=== PATIENT | male | born 1950 | race Caucasian/White ===

== ENCOUNTER 2020-01-31 11:22 | Inpatient (IN) ==
[2020-01-31] MEDS ORDERED: ACETAMINOPHEN 1,000 MG/100 ML VIAL IV STA (11:31)
[2020-01-31] MEDS: HYDROmorphone INJ 0.5 MG/0.5 ML SYR IV PRN ×2 (11:48→14:11)
[2020-01-31 11:50] LABS: Basophils # (auto) 0.02 K/uL (0-0.2); Basophils % (auto) 0.2 %; Eosinophils # (auto) 0.02 K/uL (0-0.5); Eosinophils % (auto) 0.2 %; Hematocrit (blood only) 43.6 % (42-52); Hemoglobin 15.5 g/dL (14.0-18.0); Immature Granulocytes # (auto) 0.02 K/uL (0.00-0.02); Immature Granulocytes % (auto) 0.2 %; Lymphocytes % (auto) 8.4 %; Mean Corpuscular Hemoglobin 32.3 pg (25-34); Mean Corpuscular Hgb Conc 35.6 g/dL (32-36); Mean Corpuscular Volume 90.8 fL (80-100); Mean Platelet Volume 10.2 fL (7.4-10.4); Monocytes # (auto) 0.67 K/uL (0.11-0.59); Monocytes % (auto) 5.6 %; Neutrophils # (auto) 10.19 K/uL (1.4-6.5); Neutrophils % (auto) 85.4 %; Platelet Count 232 K/uL (130-400); RDW Coefficient of Variation 11.9 % (11.5-14.5); RDW Standard Deviation 39.8 fL (36.4-46.3); White Blood Count 11.92 K/uL (4.8-10.8)
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
[2020-01-31 12:01] LABS: INR 1.1 (0.9-1.1); Partial Thromboplastin Ratio 0.9; Partial Thromboplastin Time 26.3 Seconds (21.0-31.0); Prothrombin Time 11.6 Seconds (9.0-12.0)
[2020-01-31 12:08] LABS: Creatinine Clr Calc Pharmacy 63.5 ml/min; Est GFR (African American) 99.3; Est GFR (Non-African American) 85.7; Potassium 3.9 mmol/L (3.5-5.1)
--- NOTE | 2020-01-31 12:24 | XRay Report ---
XR chest 1V not portable CLINICAL HISTORY: Pt left hip fracture COMPARISON STUDY: No previous studies for comparison. FINDINGS: Moderate emphysematous change. Several small blebs right lung base. No acute infiltrate. IMPRESSION: Emphysematous change. No acute process. ACT 112: Negative or not required by law. The above report was generated using voice recognition software. It may contain grammatical, syntax or spelling errors. Electronically signed by: Mello Sanford M.D. 01/31/2020 12:23 PM
--- NOTE | 2020-01-31 12:25 | XRay Report ---
XR pelvis 1-2V routine CLINICAL HISTORY: Pt c/o left hip pain COMPARISON: None. DISCUSSION: Intertrochanteric fracture left hip. Degenerative change of the hips bilaterally consider ed moderate. No evidence for acetabular protrusion. There is no evidence for soft tissue swelling. IMPRESSION: Intertrochanteric fracture left hip. Moderate superimposed degenerative change. ACT 112: Negative or not required by law. The above report was generated using voice recognition software. It may contain grammatical, syntax or spelling errors. Electronically signed by: Mello Sanford M.D. 01/31/2020 12:24 PM
--- NOTE | 2020-01-31 12:27 | XRay Report ---
XR femur LT 2V routine CLINICAL HISTORY: Pt c/o left hip pain COMPARISON: None. DISCUSSION: Intertrochanteric fracture left hip considered nondisplaced. Equivocal subcapital region of sclerosis. There is no evidence for soft tissue swelling. IMPRESSION: 1. Nondisplaced intertrochanteric fracture left hip. 2. Slightly atypical appearance subcapital region left hip with CT of the bony pelvis suggested as fo llow-up. ACT 112: Negative or not required by law. The above report was generated using voice recognition software. It may contain grammatical, syntax or spelling errors. Electronically signed by: Mello Sanford M.D. 01/31/2020 12:25 PM
--- NOTE | 2020-01-31 12:28 | XRay Report ---
XR finger(s) LT min 2V CLINICAL HISTORY: Pt ring finger pain. Fall. COMPARISON STUDY: None. FINDINGS: Soft tissue swelling at the PIP joint of the left ring finger. No fracture or dislocation. 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 Mild osteoarthritis at the PIP joint. No radiopaque foreign bodies. IMPRESSION: No fractures. Soft tissue swelling at the PIP joint of the left ring finger. ACT 112: Negative or not required by law. Electronically signed by: Nick Bravo M.D. 01/31/2020 12:26 PM
[2020-01-31] MEDS ORDERED: PNEUMOCOCCAL ADMINISTRATION CHARGE ONE (13:10)
[2020-01-31] MEDS ORDERED: PNEUMOCOCCAL POLYSACCHARIDES 25 MCG/0.5 ML VIAL/SYR IM ONE (13:10)
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
[2020-01-31] MEDS ORDERED: MAGNESIUM HYDROXIDE SUSP 30 ML UDC PO PRN (14:40)
[2020-01-31] MEDS ORDERED: ACETAMINOPHEN 325 MG TAB PO PRN (14:40)
[2020-01-31] MEDS ORDERED: DEXTROSE 50% 50 ML SYRINGE IV PRN (14:40)
[2020-01-31] MEDS ORDERED: CARBOHYDRATES FOR HYPOGLYCEMIA PO PRN (14:40)
[2020-01-31] MEDS ORDERED: ALBUT/IPRATROP 3MG/0.5MG NEB 3 ML VIAL NEB PRN (14:40)
[2020-01-31] MEDS ORDERED: GLUCOSE 10 TABS/TUBE PO PRN (14:40)
[2020-01-31] MEDS ORDERED: GLUCAGON FOR INJ 1 MG VIAL SQ PRN (14:40)
[2020-01-31] MEDS ORDERED: bisacodyL 10 MG SUPP PR PRN (14:40)
[2020-01-31] MEDS ORDERED: NALOXONE HCL 0.4 MG/1 ML VIAL/CARP IV PRN (14:40)
[2020-01-31] MEDS ORDERED: GLUCOSE 40% GEL 15 GM TUBE PO PRN (14:40)
[2020-01-31] MEDS ORDERED: ONDANSETRON INJ 2 MG/ML 2 ML VIAL IV PRN (14:40)
[2020-01-31] MEDS ORDERED: LACTATED RINGER'S 1,000 ML IV SCH (14:40)
[2020-01-31 15:11] LABS: Appearance Urine Clear (Clear); Bacteria Urine Automated Negative (Negative); Bilirubin Urine Negative (Negative); Blood Urine 3+ (Negative); Cast Urine Automated 0 /lpf (0-5); Color Urine Yellow; Epithelial Cell Urine Auto 20-30 /lpf (0-5); Glucose Urine UA Negative (Negative); Ketones Urine Negative (Negative); Leukocyte Esterase Urine Negative (Negative); Nitrite Urine Negative (Negative); Protein Urine 2+ (Negative); RBC Urine Automated >30 /hpf (0-4); Specific Gravity Urine 1.023 (1.000-1.030); Urobilinogen Urine Negative (Negative)
[2020-01-31] MEDS: MoRPHine SULFATE 2 MG/ML CARP IV PRN (16:44)
[2020-01-31] MEDS: FLUTICASONE FUROATE 200MCG 14 PUFFS/INHALER INH SCH (16:47)
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
--- NOTE | 2020-01-31 18:14 | Electrocardiogram Report ---
Test Reason : Blood Pressure : / mmHG Vent. Rate : 095 BPM Atrial Rate : 095 BPM P-R Int : 144 ms QRS Dur : 082 ms QT Int : 342 ms P-R-T Axes : 071 075 071 degrees QTc Int : 429 ms Normal sinus rhythm Normal ECG No previous ECGs available Confirmed by Yasir Tinajero ([id number]) on 01/31/2020 6:14:05 PM Referred By: [facility] Confirmed By:Yasir Tinajero
[2020-01-31] MEDS: INSULIN ASPART 100 UNITS/ML 3 ML PEN SC SCH ×2 (18:50→21:53)
[2020-01-31] MEDS ORDERED: INSULIN GLARGINE SOLOSTAR 100 UNITS/ML 3 ML PEN SC SCH (21:00)
[2020-01-31] MEDS: INSULIN GLARGINE SOLOSTAR 100 UNITS/ML 3 ML PEN SC SCH (21:54)
[2020-01-31] MEDS: ATORVASTATIN 20 MG TAB PO SCH (21:55)
[2020-01-31] MEDS: TERAZOSIN HCL 1 MG CAP PO SCH (21:55)
[2020-01-31] MEDS: DOCUSATE SODIUM/SENNA 50/8.6MG TAB PO SCH (21:56)
[2020-02-01] MEDS: MoRPHine SULFATE 2 MG/ML CARP IV PRN ×2 (00:58→16:04)
[2020-02-01] MEDS ORDERED: Nursing to Pharmacy Communication ONE ×2 (04:26→14:47)
[2020-02-01 05:48] LABS: Hematocrit (blood only) 41.1 % (42-52); Hemoglobin 14.1 g/dL (14.0-18.0); Mean Corpuscular Hemoglobin 31.5 pg (25-34); Mean Corpuscular Hgb Conc 34.3 g/dL (32-36); Mean Corpuscular Volume 91.7 fL (80-100); Mean Platelet Volume 9.9 fL (7.4-10.4); Platelet Count 209 K/uL (130-400); RDW Coefficient of Variation 12.2 % (11.5-14.5); RDW Standard Deviation 41.1 fL (36.4-46.3); Red Blood Count 4.48 M/uL (4.7-6.1); White Blood Count 8.53 K/uL (4.8-10.8)
[2020-02-01] MEDS ORDERED: CEFAZOLIN 2000MG 2,000 MG/15 ML SYR IV SCH (06:00)
[2020-02-01] MEDS: INSULIN ASPART 100 UNITS/ML 3 ML PEN SC SCH ×4 (06:21→21:05)
[2020-02-01 06:22] LABS: BUN Creatinine Ratio 22.6 (10-20); Calcium 8.7 mg/dl (8.5-10.1); Creatinine Clr Calc Pharmacy 70.5 ml/min; Est GFR (African American) 104.6; Est GFR (Non-African American) 90.2; Potassium 3.8 mmol/L (3.5-5.1)
[2020-02-01] MEDS ORDERED: BUPIVACAINE/EPINEPHRINE 0.5% MPF 1:200,000 10 ML VIAL ONE (07:05)
--- NOTE | 2020-02-01 07:21 | Anesthesiology Consultation ---
Date of Service February 01, 2020 Assessment & Plan Chart Review Chart Review: Acceptable Risk for Surgery Consults Requested none History Surgery Operation Date: 02/01/20 07:30 Proposed Procedures p Left Troch Nail - Farooq Ordoñez MD Height/Weight Height: 5 ft 7 in Weight: 58.6 kg Allergies Allergy/AdvReac Type Severity Reaction Status Date / Time No Known Allergies Allergy Unverified 01/31/20 12:38 Medications Home Medications Medication Instructions Recorded Confirmed Last Taken aspirin [Aspir-81] 81 mg PO DAILY 01/31/20 01/31/20 01/30/20 atorvastatin 20 mg PO HS 01/31/20 01/31/20 01/30/20 ciclesonide [Alvesco] 1 puff INHALATION BID 01/31/20 01/31/20 01/30/20 levalbuterol tartrate [Xopenex HFA] 2 inh INHALATION QID PRN 01/31/20 01/31/20 Unknown lisinopril 2.5 mg PO DAILY 01/31/20 01/31/20 01/30/20 metformin 1,000 mg PO BID 01/31/20 01/31/20 01/30/20 terazosin 1 mg PO HS 01/31/20 01/31/20 01/30/20 Active Medications Generic Name Dose Route Start Last Admin Trade Name Freq PRN Reason Stop Dose Admin Atorvastatin Calcium 20 mg 01/31/20 21:00 01/31/20 21:55 Lipitor PO 03/01/20 20:59 20 mg HS ARAM Administration Fluticasone Furoate 1 puffs 01/31/20 15:30 01/31/20 16:47 Arnuity Ellipta 200mcg INH 03/01/20 15:29 1 puffs QAM ARAM Administration Protocol Insulin Aspart 0 units 02/01/20 06:00 02/01/20 06:21 Novolog Flexpen SC 03/02/20 05:59 Not Given Q6 ARAM Insulin Glargine 10 units 01/31/20 21:00 01/31/20 21:54 Lantus Solostar Pen SC 03/01/20 20:59 10 units HS ARAM Administration Morphine Sulfate 2 mg 01/31/20 14:40 02/01/20 00:58 Morphine Sulfate IV 02/14/20 14:39 2 mg Q2H PRN Administration MODERATE Pain (Scale 4,5,6) Senna/Docusate Sodium 2 tab 01/31/20 21:00 01/31/20 21:56 Senokot S PO 03/01/20 20:59 2 tab HS ARAM Administration Terazosin HCl 1 mg 01/31/20 21:00 01/31/20 21:55 Hytrin PO 03/01/20 20:59 1 mg HS ARAM Administration NPO Date Last Intake of Fluids: 02/01/20 Time Last Intake of Fluids: 00:00 Past Medical History Medical History BPH (benign prostatic hyperplasia) COPD (chronic obstructive pulmonary disease) Diabetes mellitus, type II Dyslipidemia Hypertension Memory problem Past Family History Family History Other Unknown family medical history Past Surgical History Surgical History Hx of tonsillectomy Social History Smoking Status: Former smoker Do You Dip or Chew Tobacco: No Hx Alcohol Use: No Hx Substance Use: No substance use type: does not use Physical Exam Vital Signs Last Vital Signs Temp 37.0 C 02/01/20 06:10 Pulse 75 02/01/20 06:10 Resp 18 02/01/20 06:10 BP 141/85 H 02/01/20 06:10 Pulse Ox 92 02/01/20 06:10 Testing Laboratory Results 02/01/20 05:18 02/01/20 05:18 PT 11.6 Seconds (9.0-12.0) 01/31/20 11:40 INR 1.1 (0.9-1.1) 01/31/20 11:40 APTT 26.3 Seconds (21.0-31.0) 01/31/20 11:40 Urine Color Yellow 01/31/20 14:49 Urine Appearance Clear (Clear) 01/31/20 14:49 Urine pH 7.0 (4.5-7.5) 01/31/20 14:49 Ur Specific [place] 1.023 (1.000-1.030) 01/31/20 14:49 Urine Protein 2+ (Negative) H 01/31/20 14:49 Urine Glucose (UA) Negative (Negative) 01/31/20 14:49 Urine Ketones Negative (Negative) 01/31/20 14:49 Urine Nitrite Negative (Negative) 01/31/20 14:49 Ur Leukocyte Esterase Negative (Negative) 01/31/20 14:49 Urine WBC (Auto) 1-5 /hpf (0-5) 01/31/20 14:49 Urine RBC (Auto) >30 /hpf (0-4) H 01/31/20 14:49 U Hyaline Cast (Auto) 0 /lpf (0-5) 01/31/20 14:49 U Epithel Cells (Auto) 20-30 /lpf (0-5) H 01/31/20 14:49 Urine Bacteria (Auto) Negative (Negative) 01/31/20 14:49 Blood Type A Positive 01/31/20 15:07 Antibody Screen NEGATIVE 01/31/20 15:07 02/01/20 01/31/20 06:15 21:09 POC Glucose 95 122 H
[2020-02-01] MEDS ORDERED: ePHEDrine sulfate 50 MG/ML AMP IV PRN (07:22)
[2020-02-01] MEDS ORDERED: ATROPINE SULFATE 0.1 MG/ML 10ML SYR IV PRN (07:22)
[2020-02-01] MEDS ORDERED: BUPIVACAINE 0.5 % 5 MG/1 ML PF 10ML VIAL ONE (07:24)
[2020-02-01] MEDS ORDERED: PROPOFOL IV EMULSION 10 MG/ML 20 ML VIAL IV ONE (07:29)
[2020-02-01] MEDS ORDERED: fentaNYL citrate 100 MCG/2 ML VIAL ONE (07:29)
[2020-02-01] MEDS ORDERED: KETAMINE HCL INJ 50 MG/ML 10 ML VIAL ONE (07:29)
[2020-02-01] MEDS ORDERED: MIDAZOLAM HCL 1 MG/ML 2ML VIAL ONE (07:29)
--- NOTE | 2020-02-01 07:29 | History & Physical Bridge Note ---
Date of Service February 01, 2020 History & Physical Bridge Note I have examined the patient, reviewed the History & Physical and in the interval since the performance of the History & Physical I have noted the following changes of clinical significance: no changes noted
[2020-02-01 07:45] LABS: Estimated Average Glucose 131 mg/dl; Hemoglobin A1C 6.2 % (4.5-5.6)
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
[2020-02-01] MEDS ORDERED: NALOXONE HCL 0.4 MG/1 ML VIAL/CARP IV PRN (10:20)
--- NOTE | 2020-02-01 10:23 | Anesthesiology Progress Note ---
Date of Service February 01, 2020 Anesthesia Post Procedure Vital Signs Vital Signs: Temp Pulse Pulse Pulse Resp BP BP 02/01/20 10:04 35.8 C L 96 H 24 02/01/20 09:50 98 H 17 02/01/20 09:40 88 23 02/01/20 09:30 85 12 02/01/20 09:20 84 18 02/01/20 09:12 35.9 C L 88 20 02/01/20 06:10 37.0 C 75 18 01/31/20 23:49 36.7 C 74 20 01/31/20 14:34 37 C 70 18 162/84 H 01/31/20 14:00 80 17 126/82 01/31/20 13:30 80 20 109/81 01/31/20 13:01 85 14 01/31/20 13:00 78 19 136/84 01/31/20 12:42 76 18 01/31/20 11:53 92 H 20 01/31/20 11:25 37.2 C 95 H 12 143/96 H BP Pulse Ox 02/01/20 10:04 132/90 99 02/01/20 09:50 115/86 94 02/01/20 09:40 110/70 98 02/01/20 09:30 90/65 L 99 02/01/20 09:20 109/75 92 02/01/20 09:12 83/49 L 95 02/01/20 06:10 141/85 H 92 01/31/20 23:49 138/79 92 01/31/20 14:34 93 01/31/20 14:00 93 01/31/20 13:30 93 01/31/20 13:01 93 01/31/20 13:00 93 01/31/20 12:42 132/76 94 01/31/20 11:53 151/90 H 94 01/31/20 11:25 143 H Pain Intensity Left Foot: Pain Intensity: 5 Left 4th Digit Finger: Pain Intensity: 3 Left Hip: Pain Intensity: 6 Transfer of Care Handoff Completed per policy Notes Mental Status: alert / awake / arousable and participated in evaluation Patient Amnestic to Procedure: Yes Nausea / Vomiting: adequately controlled Pain: adequately controlled Airway Patency, RR, SpO2: stable & adequate BP & HR: stable & adequate Hydration State: stable & adequate Anesthetic Complications: no major complications apparent
[2020-02-01] MEDS: FLUTICASONE FUROATE 200MCG 14 PUFFS/INHALER INH SCH (10:25)
--- NOTE | 2020-02-01 10:32 | Fluoroscopy Report ---
FL femur LT 2V CLINICAL HISTORY: LEFT TROCH NAIL COMPARISON STUDY: None. FLUOROSCOPY TIME: 1 minute and 9 seconds. FINDINGS: 4 fluoroscopic spot images of the left femur demonstrate internal fixation of an intertroch anteric fracture with an intramedullary malini and femoral neck pin. The hardware appears intact. Alignm ent appears near anatomic. IMPRESSION: Fluoroscopy provided for internal fixation of a left hip fracture. The hardware appears i ntact. ACT 112: Negative or not required by law. Electronically signed by: Nick Bravo M.D. 02/01/2020 10:31 AM
[2020-02-01] MEDS: OXYCODONE HCL IR 5 MG TAB (IMMEDIATE RELEASE) PO PRN ×3 (13:45→22:44)
--- NOTE | 2020-02-01 14:17 | Hospitalist Progress Note ---
Date of Service February 01, 2020 Assessment & Plan (1) Intertrochanteric fracture of left femur: This is a 69-year-old prisoner admitted with left hip pain History of fall several weeks ago with ongoing left hip pain, unable to bear weight on left leg X-rays of the pelvis and left femur reveal a left nondisplaced intertrochanteric hip fracture. Orthopedic consulted, appreciate input Status post ORIF of left hip today (2) Hypertension: Stable -Continue lisinopril (3) Diabetes mellitus, type II: A1c: 6.0 on 01/10/2020 per Medical staff at [facility] -Hold metformin -Monitor BSG -Novolog sliding scale as per protocol (4) Dyslipidemia: -Continue atorvastatin (5) COPD (chronic obstructive pulmonary disease): No acute exacerbation -Continue inhalers -Duonebs prn SOB/wheezing (6) BPH (benign prostatic hyperplasia): -Continue terazosin (7) Memory problem: Medical staff from [facility] report pt at his baseline mental status. Report the pt is currently being worked up for dementia -Monitor for delirium DVT Prophylaxis -SCDs Full Code as per discussion with pt Disposition: Return to [facility] when medically stable Admission and Anticipated Discharge Date Admission Date: January 31, 2020 Subjective Patient is status post left hip surgery today Complains of pain on left hip surgical site, getting relief with current pain medication regimen Denies of any complaint of shortness of breath, no fever or chills No cough, no complaint of chest pain chest heaviness Review of Systems Review of Systems: All systems reviewed & are unremarkable except as noted in HPI & below Constitutional: no fever and no chills Respiratory: no cough and no wheezing Physical Exam Constitutional: WD/WN, vitals as above + ill appearing Eyes: PERRL, conjunctivae normal, anicteric sclerae ENMT: external ear and nose normal, oropharynx normal Neck: trachea midline, no thyromegaly Respiratory: normal respiratory effort, lungs clear to auscultation Cardiovascular: RRR, no murmur, no edema Gastrointestinal (Abdomen): Inspection/Auscultation: normal bowel sounds Percussion/Palpation: abdomen soft; abdomen nontender Musculoskeletal: Status post left hip surgery Neurologic: PERRL, EOMI, accommodation nl, no face palsy, no dysarthria Psychiatric: A+Ox3, euthymic affect Results & Data ([place]) Vital Signs (Past 12 Hours) Vital Signs Temp Pulse Pulse Pulse Pulse Resp BP 02/01/20 13:42 92 H 02/01/20 13:12 36.8 C 120 H 18 105/69 02/01/20 12:21 36.5 C 02/01/20 12:00 36.5 C 119 H 20 109/75 02/01/20 11:20 36.6 C 108 H 18 123/77 02/01/20 11:17 36.2 C L 02/01/20 10:57 117 H 16 106/75 02/01/20 10:20 35.7 C L 02/01/20 10:15 35.7 C L 105 H 16 126/73 02/01/20 10:04 35.8 C L 96 H 24 132/90 02/01/20 09:50 98 H 17 115/86 02/01/20 09:40 88 23 110/70 02/01/20 09:30 85 12 90/65 L 02/01/20 09:20 84 18 109/75 02/01/20 09:12 35.9 C L 88 20 83/49 L 02/01/20 06:10 37.0 C 75 18 141/85 H Pulse Ox 02/01/20 13:42 02/01/20 13:12 95 02/01/20 12:21 02/01/20 12:00 100 02/01/20 11:20 100 02/01/20 11:17 100 02/01/20 10:57 100 02/01/20 10:20 02/01/20 10:15 100 02/01/20 10:04 99 02/01/20 09:50 94 02/01/20 09:40 98 02/01/20 09:30 99 02/01/20 09:20 92 02/01/20 09:12 95 02/01/20 06:10 92 Diagnostic Findings LEFT FEMUR XRAY: IMPRESSION: 1. Nondisplaced intertrochanteric fracture left hip. 2. Slightly atypical appearance subcapital region left hip with CT of the bony pelvis suggested as follow-up. PELVIS XRAY: IMPRESSION: Intertrochanteric fracture left hip. Moderate superimposed degenerative change. LEFT FINGER XRAY: IMPRESSION: No fractures. Soft tissue swelling at the PIP joint of the left ring finger. CXR: IMPRESSION: Emphysematous change. No acute process.
[2020-02-01] MEDS: ATORVASTATIN 20 MG TAB PO SCH (21:04)
[2020-02-01] MEDS: DOCUSATE SODIUM/SENNA 50/8.6MG TAB PO SCH (21:04)
[2020-02-01] MEDS: TERAZOSIN HCL 1 MG CAP PO SCH (21:04)
[2020-02-01] MEDS: INSULIN GLARGINE SOLOSTAR 100 UNITS/ML 3 ML PEN SC SCH (21:05)
[2020-02-02] MEDS: OXYCODONE HCL IR 5 MG TAB (IMMEDIATE RELEASE) PO PRN ×5 (03:12→23:35)
[2020-02-02 06:25] LABS: Calcium 8.5 mg/dl (8.5-10.1); Creatinine Clr Calc Pharmacy 63.5 ml/min; Est GFR (African American) 99.3; Est GFR (Non-African American) 85.7; Potassium 4.4 mmol/L (3.5-5.1)
[2020-02-02 06:37] LABS: Basophils # (auto) 0.02 K/uL (0-0.2); Basophils % (auto) 0.2 %; Eosinophils # (auto) 0.09 K/uL (0-0.5); Eosinophils % (auto) 0.9 %; Hematocrit (blood only) 30.7 % (42-52); Hemoglobin 10.9 g/dL (14.0-18.0); Immature Granulocytes # (auto) 0.03 K/uL (0.00-0.02); Immature Granulocytes % (auto) 0.3 %; Lymphocytes # (auto) 1.21 K/uL (1.2-3.4); Lymphocytes % (auto) 12.6 %; Mean Corpuscular Hemoglobin 31.8 pg (25-34); Mean Corpuscular Hgb Conc 35.5 g/dL (32-36); Mean Corpuscular Volume 89.5 fL (80-100); Mean Platelet Volume 10.1 fL (7.4-10.4); Monocytes # (auto) 0.82 K/uL (0.11-0.59); Monocytes % (auto) 8.6 %; Neutrophils # (auto) 7.42 K/uL (1.4-6.5); Neutrophils % (auto) 77.4 %; Platelet Count 187 K/uL (130-400); RDW Standard Deviation 38.9 fL (36.4-46.3); Red Blood Count 3.43 M/uL (4.7-6.1); White Blood Count 9.59 K/uL (4.8-10.8)
[2020-02-02] MEDS: INSULIN ASPART 100 UNITS/ML 3 ML PEN SC SCH ×4 (08:43→20:49)
[2020-02-02] MEDS: FLUTICASONE FUROATE 200MCG 14 PUFFS/INHALER INH SCH (08:43)
--- NOTE | 2020-02-02 08:50 | Progress Notes ---
DATE: 02/02/2020 SUBJECTIVE: A 69-year-old gentleman postop day 1 from a left femur IM nailing for an intertrochanteric fracture. He is doing pretty well. Just having a left thigh soreness and that is it. No new complaints. No chest pain or shortness of breath. Not feeling dizzy or lightheaded. He did get out of bed last evening. OBJECTIVE: VITAL SIGNS: Temperature 37.1. Vital signs stable. GENERAL: Shows a pleasant, cachectic elderly male. He is lying in bed, looks reasonably comfortable. EXTREMITIES: Examination of the left leg reveals it to be well aligned. Dressings are clean, dry, and intact. He can dorsiflex and plantarflex his foot appropriately. He is neurologically intact. His thigh is soft and supple. LABORATORY DATA: Hemoglobin 10.9. Hematocrit 30.7. Electrolytes are stable. Sodium a bit low at 128. ASSESSMENT: A 69-year-old gentleman postop day 1 from IM nailing of left intertrochanteric fracture. Orthopedically, he is doing well. He has been a little tachycardic, likely related to some pain. Sodium is a little bit low. PLAN: 1. DVT prophylaxis including thigh-high TEDs, SCDs, and aspirin twice a day for the next 6 weeks. 2. PT/OT. He can fully weightbear on this leg as tolerated. 3. Medical management as per the medicine physicians. We will let him manage his sodium. 4. Disposition: He is orthopedically okay for discharge any time medically stable. I need to see him back about 2 weeks out from surgery. He can fully weightbear on his left lower extremity. Once again, he is okay for discharge any time medically stable.
[2020-02-02] MEDS: ACETAMINOPHEN 325 MG TAB PO PRN ×2 (12:12→20:45)
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
[2020-02-02] MEDS: SODIUM CHLORIDE 0.9% 1000ML 1,000 ML IV SCH (19:02)
[2020-02-02] MEDS: ATORVASTATIN 20 MG TAB PO SCH (20:46)
[2020-02-02] MEDS: DOCUSATE SODIUM/SENNA 50/8.6MG TAB PO SCH (20:46)
[2020-02-02] MEDS: TERAZOSIN HCL 1 MG CAP PO SCH (20:46)
[2020-02-02] MEDS: INSULIN GLARGINE SOLOSTAR 100 UNITS/ML 3 ML PEN SC SCH (20:48)
[2020-02-03] MEDS: ACETAMINOPHEN 325 MG TAB PO PRN ×3 (02:14→14:46)
[2020-02-03] MEDS: SODIUM CHLORIDE 0.9% 1000ML 1,000 ML IV SCH (05:44)
[2020-02-03 06:40] LABS: BUN Creatinine Ratio 28.6 (10-20); Calcium 8.5 mg/dl (8.5-10.1); Creatinine Clr Calc Pharmacy 63.5 ml/min; Est GFR (African American) 99.3; Est GFR (Non-African American) 85.7; Potassium 4.4 mmol/L (3.5-5.1)
--- NOTE | 2020-02-03 08:06 | Progress Notes ---
DATE: 02/03/2020 SUBJECTIVE: A 69-year-old gentleman postop day 2 from IM nailing of left intertrochanteric fracture. He is doing pretty well. Pain is a little bit better this morning. No new complaints. OBJECTIVE: VITAL SIGNS: Temperature 36.9. Vital signs stable. A little tachycardic. GENERAL: Shows a thin, cachectic elderly male. He is lying in bed, looks reasonably comfortable. EXTREMITIES: Examination of the left leg reveals the dressing to be clean, dry and intact. Leg is well aligned. He is neurologically intact. ASSESSMENT: A 69-year-old gentleman postop day 2 from IM nailing of left intertrochanteric fracture, doing reasonably well. Pain seems to be controlled. He is neurologically intact. PLAN: 1. DVT prophylaxis including thigh-high TEDs, SCDs, and aspirin twice a day. 2. PT/OT. Weight bear as tolerated. He can weightbear as tolerated left lower extremity. 3. Medical management as per the medicine service. 4. Disposition: He is orthopedically okay for discharge. I need to see him back somewhere between 2 and 3 weeks out from surgery.
[2020-02-03] MEDS: FLUTICASONE FUROATE 200MCG 14 PUFFS/INHALER INH SCH (08:44)
[2020-02-03] MEDS: INSULIN ASPART 100 UNITS/ML 3 ML PEN SC SCH ×2 (08:47→12:36)
[2020-02-03] MEDS: OXYCODONE HCL IR 5 MG TAB (IMMEDIATE RELEASE) PO PRN ×2 (10:01→14:46)
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
== END 2020-02-03 17:35 | DRG 481 ==
LOC: ED 11:22 → SUATTDRO 13:05 → 3E 13:05